=== PATIENT | female | born 1985 | race African-American/Black ===

== ENCOUNTER 2017-08-01 16:33 | Emergency (ER) | payer BC ==
[2017-08-01] MEDS ORDERED: Proparacaine 0.5% Opth 15 ML BOT ONE (16:58)
[2017-08-01] MEDS ORDERED: Fluorescein Opthalmic Strip ONE (16:58)
[2017-08-01 17:10] LABS: #Basophils 0.1 thou/uL (0.0-0.2); #Eosinphils 0.3 thou/uL (0.0-0.7); #Lymphocytes 3.3 thou/uL (1.20-3.40); #Monocytes 0.7 thou/uL (0.11-0.59); #Neutrophils 4.5 thou/uL (1.40-6.50); %Basophils 1.2 % (0.0-1.0); %Eosinophils 3.2 % (0.0-10.0); %Lymphocytes 37.7 % (21.0-51.0); %Monocytes 7.3 % (0.0-10.0); Hematocrit 39.1 % (36.0-47.0); Mean Platelet Volume 7.7 fL (7.4-10.4); Red Blood Cell (RBC) Count 4.22 mill/uL (4.20-5.40); White Blood Cell (WBC) Count 8.9 thou/uL (4.8-10.8)
[2017-08-01] MEDS ORDERED: Ondansetron HCl/PF 4 MG/2 ML Vial ONE (17:22)
[2017-08-01 17:32] LABS: ALT (SGPT) 14 U/L (8-55); AST (SGOT) 18 U/L (5-34); Alkaline Phosphatase 79 U/L (40-150); Anion Gap 13 mmol/L (10-20); BUN (Urea Nitrogen) 10 mg/dL (7.0-18.7); Bilirubin, Total Less than 0.2 mg/dL (0.2-1.2); CK (CPK) 167 U/L (29-168); Calc. Creatinine Clearance 0 mL/min (70-130); Calcium 9.1 mg/dL (7.8-10.44); Carbon Dioxide 21 mmol/L (22-29); Chloride 108 mmol/L (98-107); Estimated GFR-MDRD Greater than 90; Globulin 3.3 g/dL (2.4-3.5); Lipase 32 U/L (8-78); Protein, Total 7.4 g/dL (6.0-8.3)
[2017-08-01 17:36] LABS: Troponin I Less than 0.010 ng/mL (< 0.028)
[2017-08-01] MEDS ORDERED: Ketorolac Tromethamine 30 MG/ML VIAL ONE (18:08)
[2017-08-01] MEDS ORDERED: diphenhydrAMINE HCl 50 MG/ML 1 ML VIAL ONE (18:08)
[2017-08-01] MEDS ORDERED: Metoclopramide HCl 10 MG/2 ML VIAL ONE (18:08)
--- NOTE | 2017-08-01 18:11 | RAD ---
RADIOGRAPH CHEST 1 VIEW: HISTORY: 32-year-old female with acute chest pain. FINDINGS: There are no air space densities, pulmonary edema, pneumothorax, or cardiomegaly. The lateral costo phrenic angles are sharp. IMPRESSION: No acute cardiopulmonary findings. gudelia POS: [facility]
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
== END 2017-08-01 19:20 | disposition home or self-care (01) ==
LOC: ERS 16:33
DX: G43.909 Migraine, unspecified, not intractable, without status migrainosus (principal); R07.89 Other chest pain; F17.210 Nicotine dependence, cigarettes, uncomplicated
CPT/HCPCS: 70450; 71010; 80053; 82550; 82553; 83690; 84484; 85025; 85652; 93005; 96361; 96365; 96375; J1200; J1885; J2270; J2405; J2765

== ENCOUNTER 2018-08-08 12:54 | Outpatient (CLI) | payer BC | END 2018-08-08 12:55 | disposition home or self-care (01) | LOC: BICMAMMO 12:54 | PROVIDERS: ATTEND Nurse Practitioner Family | DX: N63.20 Unspecified lump in the left breast, unspecified quadrant (principal) | CPT/HCPCS: 77066; G0279 ==

== ENCOUNTER 2019-02-03 11:39 | Emergency (ER) | payer BC ==
[2019-02-03] MEDS ORDERED: Ondansetron PF 4 MG/2 ML Vial ONE (12:02)
[2019-02-03] MEDS ORDERED: Morphine 4 MG/ML VIAL ONE ×2 (12:02→12:42)
[2019-02-03 12:11] LABS: #Basophils 0.1 thou/uL (0.0-0.2); #Eosinphils 0.2 thou/uL (0.0-0.7); #Monocytes 0.7 thou/uL (0.11-0.59); #Neutrophils 4.5 thou/uL (1.40-6.50); %Eosinophils 2.2 % (0.0-10.0); %Lymphocytes 35.3 % (21.0-51.0); %Monocytes 8.2 % (0.0-10.0); %Neutrophils 53.3 % (42.0-75.0); Hemoglobin 12.8 g/dL (12.0-16.0); Mean Corpuscular HGB CONC 32.2 g/dL (32.0-36.0); Mean Platelet Volume 7.9 fL (7.4-10.4); Platelet Count 332 thou/uL (130-400); RBC Distribution Width 13.5 % (11.5-14.5); Red Blood Cell (RBC) Count 4.42 mill/uL (4.20-5.40); White Blood Cell (WBC) Count 8.5 thou/uL (4.8-10.8)
[2019-02-03 12:26] LABS: ALT (SGPT) 29 U/L (8-55); AST (SGOT) 22 U/L (5-34); Albumin 4.4 g/dL (3.5-5.0); Alkaline Phosphatase 80 U/L (40-150); Anion Gap 13 mmol/L (10-20); BUN (Urea Nitrogen) 9 mg/dL (7.0-18.7); Bilirubin, Total 0.3 mg/dL (0.2-1.2); Calc. Creatinine Clearance 0 mL/min (70-130); Calcium 9.3 mg/dL (7.8-10.44); Carbon Dioxide 24 mmol/L (22-29); Chloride 105 mmol/L (98-107); Estimated GFR-MDRD Greater than 90; Globulin 2.9 g/dL (2.4-3.5); Glucose 82 mg/dL (70-105); Lipase 19 U/L (8-78); Potassium 3.7 mmol/L (3.5-5.1); Protein, Total 7.3 g/dL (6.0-8.3); Sodium 138 mmol/L (136-145)
--- NOTE | 2019-02-03 13:53 | ULT ---
Exam: Pelvic ultrasound HISTORY: Pelvic pain COMPARISON: None TECHNIQUE: Multiple grayscale and color Doppler images were obtained in a transabdominal and transvag inal pelvic ultrasound. Spectral analysis of the Doppler waveforms of the ovaries were performed. FINDINGS: UTERUS: Status Post Hysterectomy, as reported by patient No free fluid is present. RIGHT OVARY: Surgically removed, as reported by patient. LEFT OVARY:Cyst formation of the left ovary is present. Dominant cyst is approximately 2.7 cm. Th ere is component of complex echotexture of the left ovarian cysts, nonspecific. IMPRESSION: Complex cysts of the left ovary, may be physiologic, although conservative six-week follo w-up pelvic ultrasound is recommended to confirm expected resolution. Surgical absence of uterus and right ovary.
[2019-02-03 13:56] LABS: Bilirubin Small (Negative); Blood, Urine Large (Negative); Clarity CLOUDY (Clear); Glucose, Urine (Dipstick) Negative (Negative); Leukocyte Negative (Negative); Nitrite Negative (Negative); Protein, Urine (Dipstick) Trace mg/dL (Neg-Trace); Specific Gravity, Urine 1.024 (1.002-1.036); Urobilinogen 0.2 mg/dL (0.2-1.0)
[2019-02-03 13:57] LABS: Bacteria/HPF None Seen HPF (None Seen); Hyaline Casts/LPF 4-6 HYALINE CAST LPF (0-3 Hyaline); Pathc Cast-AUWi Flag 0.68 (0-2.49); Pregnancy Test - Urine (BHCG) Negative (Negative); Pregu Control Background? CLEAR/WHITE (CLR/WHITE); Pregu Control Bar Appear? YES (CONTROL BAR); RBC/HPF GREATER THAN 50-TNTC HPF (0-3); Specific Gravity 1.024 (1.002-1.036); WBC/HPF 0-3 HPF (0-3)
[2019-02-03 13:57] LABS: BHCG - Serum Negative (NEGATIVE); Pregs Control Background? CLEAR/WHITE (CLR/WHITE); Pregs Control Bar Appear? YES (CONTROL BAR)
[2019-02-03] MEDS ORDERED: Ketorolac Tromethamine 30 MG/ML VIAL ONE (14:17)
--- NOTE | 2019-02-03 15:06 | CT ---
CT Stone Protocol 02/03/2019 2:08 PM HISTORY: Left-sided abdominal pain. COMPARISON: None. Technique: Multiple contiguous axial images were obtained and a CT of the abdomen and pelvis without IV contrast . Coronal reformats were performed. FINDINGS: This examination is limited for the evaluation of solid organs and vascular structures due to the lac k of intravenous contrast. Lower Chest: Minimal dependent bibasilar atelectasis is present. Abdomen: Liver: There is diminished attenuation of the liver suggesting diffuse fatty infiltration. Gallbladder: Postcholecystectomy changes are noted. Pancreas: within normal limits. Spleen: within normal limits. Adrenals: within normal limits. Kidneys: Multiple nonobstructing bilateral renal calculi are seen. Largest calculus in the inferior p ole right kidney measures approximately 7 mm with largest nonobstructing superior pole left renal calculus measuring approximately 8 mm. There is mild left perinephric stranding as well as left periu reteral inflammatory stranding present. There is pelvic caliectasis on the left without overt hydronephrosis. The left ureter is also asymmetrically slightly dilated compared to the right. The di stal left ureter is difficult to visualize, but there is a calcification seen at the base of the urinary bladder measuring 5 mm which may represent a distal left ureteral calculus. No right ureteral calculus or hydronephrosis is present. Pelvis: Reproductive Organs: Hypodense lesions are seen within the left ovary which may represent left ovaria n cysts. The uterus is not visualized likely related to prior hysterectomy. Bladder: Decompressed but grossly within normal limits. Bowel: Normal in caliber. The appendix is visualized and normal in caliber. Lymph Nodes: No enlarged lymph nodes. Peritoneum: No free fluid, free air, or fluid collection. Vessels: Abdominal aorta is normal in caliber.. Retroperitoneum: within normal limits. Abdominal Wall: within normal limits. Bones: within normal limits. IMPRESSION: 1. Partially obstructing left UVJ calculus measuring 5 mm. Perinephric stranding is seen on the left likely related to the mild obstruction. However, pyelonephritis based on this nonenhanced CT scan exam could not be excluded. 2. Nonobstructing bilateral renal calculi. 3. Fatty infiltration of the liver. 4. Cholecystectomy. 5. No CT evidence of appendicitis. 6. Hypodense left ovarian cystic lesions likely related to ovarian cysts. There is evidence of hyster ectomy.
[2019-02-07 09:18] LABS: Chlamydia by PCR Not Detected (NotDetected); GC by PCR Not Detected (NotDetected)
== END 2019-02-03 16:10 | disposition home or self-care (01) ==
LOC: ERS 11:39
DX: N20.1 Calculus of ureter (principal); F17.210 Nicotine dependence, cigarettes, uncomplicated; Z79.899 Other long term (current) drug therapy
CPT/HCPCS: 74176; 76856; 80053; 81003; 81015; 81025; 83690; 84703; 85025; 87480; 87491; 87510; 87591; 87660; 96374; 96375; 96376; J1885; J2270; J2405

== ENCOUNTER 2019-04-26 06:48 | Emergency (ER) | payer BC | END 2019-04-26 07:13 | disposition left against medical advice (07) | LOC: ERS 06:48 | DX: Z53.21 Procedure and treatment not carried out due to patient leaving prior to being seen by health care provider (principal) ==

== ENCOUNTER 2019-05-29 09:26 | Emergency (ER) | payer BC ==
[2019-05-29] MEDS ORDERED: Ondansetron PF 4 MG/2 ML Vial ONE ×2 (09:50→10:55)
[2019-05-29] MEDS ORDERED: Ketorolac Tromethamine 30 MG/ML VIAL ONE (09:50)
[2019-05-29 10:11] LABS: Pregnancy Test - Urine (BHCG) Negative (Negative); Pregu Control Background? CLEAR/WHITE (CLR/WHITE); Pregu Control Bar Appear? YES (CONTROL BAR); Specific Gravity 1.023 (1.002-1.036)
[2019-05-29 10:13] LABS: Bacteria/HPF None Seen HPF (None Seen); Bilirubin Negative (Negative); Blood, Urine 3+ (Negative); Clarity Turbid (Clear); Glucose, Urine (Dipstick) Normal (Negative); Leukocyte Negative Leu/uL (Negative); Nitrite Negative (Negative); Protein, Urine (Dipstick) 20 mg/dL (Neg-Trace); RBC/HPF Greater than 50 HPF (0-3); Squamous Epithelial 0-3 HPF (0-3); Urobilinogen Normal mg/dL (Less than 2); WBC/HPF None Seen HPF (0-3)
[2019-05-29 10:28] LABS: #Eosinphils 0.1 thou/uL (0.0-0.7); #Lymphocytes 1.4 thou/uL (1.20-3.40); #Monocytes 0.6 thou/uL (0.11-0.59); #Neutrophils 8.5 thou/uL (1.40-6.50); %Basophils 0.4 % (0.0-1.0); %Eosinophils 0.6 % (0.0-10.0); %Lymphocytes 13.3 % (21.0-51.0); %Monocytes 5.7 % (0.0-10.0); %Neutrophils 79.9 % (42.0-75.0); Hemoglobin 12.5 g/dL (12.0-16.0); Mean Corpuscular HGB CONC 32.1 g/dL (32.0-36.0); Mean Corpuscular Hemoglobin 28.9 pg (27.0-31.0); Mean Platelet Volume 8.5 fL (7.4-10.4); Platelet Count 247 thou/uL (130-400); Red Blood Cell (RBC) Count 4.34 mill/uL (4.20-5.40); White Blood Cell (WBC) Count 10.6 thou/uL (4.8-10.8)
[2019-05-29 10:49] LABS: ALT (SGPT) 20 U/L (8-55); AST (SGOT) 19 U/L (5-34); Albumin 4.3 g/dL (3.5-5.0); Alkaline Phosphatase 84 U/L (40-150); Anion Gap 11 mmol/L (10-20); BUN (Urea Nitrogen) 12 mg/dL (7.0-18.7); Bilirubin, Total 0.3 mg/dL (0.2-1.2); Calc. Creatinine Clearance 0 mL/min (70-130); Calcium 9.2 mg/dL (7.8-10.44); Carbon Dioxide 23 mmol/L (22-29); Chloride 106 mmol/L (98-107); Estimated GFR-MDRD 80; Globulin 2.8 g/dL (2.4-3.5); Glucose 107 mg/dL (70-105); Lipase 23 U/L (8-78); Potassium 3.8 mmol/L (3.5-5.1); Protein, Total 7.1 g/dL (6.0-8.3); Sodium 136 mmol/L (136-145)
[2019-05-29] MEDS ORDERED: Morphine 4 MG/ML VIAL ONE (10:55)
--- NOTE | 2019-05-29 11:56 | CT ---
CT ABDOMEN AND PELVIS WITH IV CONTRAST: HISTORY: Acute onset right-sided abdominal pain and vomiting. FINDINGS: Lung bases are unremarkable. The patient is post cholecystectomy and hysterectomy. The liver, splee n, pancreas, and adrenal glands are normal. No free air is seen. There is a small amount of free fl uid in the pelvis. There are calculi in the kidneys on either side. There is a 4 mm calculus in the right distal ureter with hydroureteral nephrosis and perinephric and periureteric inflammatory changes and fluid. There is a 2.7 cm cyst with enhancing granulated margins in the left ovary consistent with popliteal cyst consistent with corpus luteum. A normal-appearing appendix is seen. IMPRESSION: 1. Obstructing 4 mm right distal ureteric calculus. 2. Nonobstructing bilateral renal calculi. 3. 2.7 cm left porpus luteal ovarian cyst and a small amount of free fluid in the pelvis. POS: [facility]
[2019-05-29] MEDS ORDERED: Morphine 2 MG/ML SYRINGE ONE (12:36)
[2019-05-29] MEDS ORDERED: ISOVUE-370 76%-LOCM 1 ML ONE (16:25)
== END 2019-05-29 13:30 | disposition home or self-care (01) ==
LOC: ERS 09:26
DX: N13.2 Hydronephrosis with renal and ureteral calculous obstruction (principal)
CPT/HCPCS: 36415; 74177; 80053; 81003; 81015; 81025; 83690; 85025; 96361; 96374; 96375; 96376; J1885; J2270; J2405; Q9966

== ENCOUNTER 2021-05-11 07:47 | Inpatient (IN) | payer BC ==
[2021-05-11] MEDS ORDERED: Morphine 4 MG/ML VIAL ONE ×2 (08:17→10:43)
[2021-05-11] MEDS ORDERED: Ondansetron PF 4 MG/2 ML Vial ONE (08:17)
[2021-05-11] MEDS ORDERED: Sodium Chloride 0.9% 100 ML ONE (08:48)
[2021-05-11] MEDS ORDERED: Piperacillin/Tazobactam 3.375 GM VIAL ONE (08:48)
[2021-05-11 08:51] LABS: #Basophils 0.1 thou/uL (0.0-0.2); #Eosinphils 0.3 thou/uL (0.0-0.7); #Lymphocytes 2.5 thou/uL (1.20-3.40); #Monocytes 0.6 thou/uL (0.11-0.59); #Neutrophils 4.4 thou/uL (1.40-6.50); %Basophils 1.1 % (0.0-1.0); %Eosinophils 3.5 % (0.0-10.0); %Lymphocytes 31.7 % (21.0-51.0); %Monocytes 7.9 % (0.0-10.0); Hemoglobin 11.5 g/dL (12.0-16.0); Mean Corpuscular HGB CONC 32.8 g/dL (32.0-36.0); Mean Corpuscular Hemoglobin 30.1 pg (27.0-31.0); Mean Corpuscular Volume 91.8 fL (78.0-98.0); Mean Platelet Volume 7.1 fL (7.4-10.4); Platelet Count 430 thou/uL (130-400); RBC Distribution Width 13.2 % (11.5-14.5); Red Blood Cell (RBC) Count 3.84 mill/uL (4.20-5.40); White Blood Cell (WBC) Count 7.9 thou/uL (4.8-10.8)
[2021-05-11] MEDS ORDERED: Iopamidol-370 76% 500 ML 1 ML ONE (08:54)
[2021-05-11] MEDS ORDERED: Vancomycin HCl 1.75 GM in Sodium Chloride 0.9% 500 ML IVPB SCH (09:00)
[2021-05-11 09:08] LABS: ALT (SGPT) 15 U/L (8-55); AST (SGOT) 16 U/L (5-34); Albumin 3.9 g/dL (3.5-5.0); Alkaline Phosphatase 73 U/L (40-110); Anion Gap 10 mmol/L (10-20); BUN (Urea Nitrogen) 8 mg/dL (7.0-18.7); Bilirubin, Total 0.3 mg/dL (0.2-1.2); Calc. Creatinine Clearance 0 mL/min (70-130); Carbon Dioxide 23 mmol/L (22-29); Chloride 107 mmol/L (98-107); Globulin 2.8 g/dL (2.4-3.5); Glucose 94 mg/dL (70-105); Lipase 26 U/L (8-78); Protein, Total 6.7 g/dL (6.0-8.3); Sodium 136 mmol/L (136-145)
[2021-05-11 10:21] LABS: Bilirubin Negative (Negative); Blood, Urine Negative (Negative); Clarity Clear (Clear); Glucose, Urine (Dipstick) Normal (Negative); Ketone, Urine Negative (Negative); Leukocyte Negative Leu/uL (Negative); Nitrite Negative (Negative); Protein, Urine (Dipstick) Negative (Neg-Trace); Specific Gravity, Urine 1.011 (1.002-1.036); Urobilinogen Normal mg/dL (Less than 2); pH, Urine 6.5 (5.0-9.0)
[2021-05-11] MEDS ORDERED: HYDROcodone/Acetaminophen 5/325 mg Tablet PO PRN (12:02)
[2021-05-11] MEDS ORDERED: Acetaminophen 325 MG TAB PO PRN (12:02)
[2021-05-11] MEDS ORDERED: Ondansetron ODT 4 MG TAB PO PRN ×2 (12:02)
[2021-05-11] MEDS ORDERED: Ondansetron PF 4 MG/2 ML Vial IVP PRN ×2 (12:02)
[2021-05-11] MEDS ORDERED: Famotidine/PF 20 mg/2ml Vial ONE (12:47)
[2021-05-11] MEDS ORDERED: diphenhydrAMINE 50 MG/ML VIAL ONE (12:47)
[2021-05-11] MEDS: Morphine 2 MG/ML VIAL SLOW IVP PRN ×2 (14:26→23:23)
[2021-05-11 15:05] VITALS: BMI 30.7
[2021-05-11] MEDS: Cefepime 1 GM in Sodium Chloride 0.9% 100 ML IVPB SCH (15:40)
[2021-05-11] MEDS ORDERED: Piperacillin/Tazobactam 3.375 GM in Sodium Chloride 0.9% 100 ML IVPB SCH (17:00)
[2021-05-11] MEDS: HYDROcodone/Acetaminophen 5/325 mg Tablet PO PRN ×2 (17:27→20:45)
[2021-05-11] MEDS: Famotidine 20 MG TAB PO SCH (20:34)
[2021-05-11] MEDS: VANCOMYCIN 1.25 GM/250 ML BAG 1.25 GM in Premix Bag 1 BAG IVPB SCH (20:34)
[2021-05-11] MEDS: Famotidine/PF 20 mg/2ml Vial SLOW IVP SCH (20:35)
[2021-05-12] MEDS: Cefepime 1 GM in Sodium Chloride 0.9% 100 ML IVPB SCH ×2 (02:18→15:23)
[2021-05-12] MEDS: VANCOMYCIN 1.25 GM/250 ML BAG 1.25 GM in Premix Bag 1 BAG IVPB SCH ×3 (04:06→20:14)
[2021-05-12 06:17] LABS: #Basophils 0.1 thou/uL (0.0-0.2); #Eosinphils 0.2 thou/uL (0.0-0.7); #Lymphocytes 1.8 thou/uL (1.20-3.40); #Monocytes 0.5 thou/uL (0.11-0.59); #Neutrophils 3.2 thou/uL (1.40-6.50); %Basophils 0.9 % (0.0-1.0); %Eosinophils 3.7 % (0.0-10.0); %Lymphocytes 31.1 % (21.0-51.0); %Monocytes 9.2 % (0.0-10.0); %Neutrophils 55.1 % (42.0-75.0); Hemoglobin 10.1 g/dL (12.0-16.0); Mean Corpuscular HGB CONC 31.8 g/dL (32.0-36.0); Mean Corpuscular Hemoglobin 29.9 pg (27.0-31.0); Mean Corpuscular Volume 94.1 fL (78.0-98.0); Platelet Count 369 thou/uL (130-400); RBC Distribution Width 13.5 % (11.5-14.5); Red Blood Cell (RBC) Count 3.38 mill/uL (4.20-5.40); White Blood Cell (WBC) Count 5.9 thou/uL (4.8-10.8)
[2021-05-12 06:38] LABS: Anion Gap 9 mmol/L (10-20); BUN (Urea Nitrogen) 10 mg/dL (7.0-18.7); Calc. Creatinine Clearance 140 mL/min (70-130); Calcium 8.4 mg/dL (7.8-10.44); Carbon Dioxide 26 mmol/L (22-29); Chloride 108 mmol/L (98-107); Glucose 88 mg/dL (70-105); Potassium 4.1 mmol/L (3.5-5.1); Sodium 139 mmol/L (136-145)
[2021-05-12] MEDS: Famotidine/PF 20 mg/2ml Vial SLOW IVP SCH (08:53)
[2021-05-12] MEDS: Famotidine 20 MG TAB PO SCH ×2 (08:56→20:15)
[2021-05-12] MEDS: HYDROcodone/Acetaminophen 5/325 mg Tablet PO PRN ×2 (08:58→15:23)
[2021-05-12 11:36] LABS: Vancomycin, Trough 17.6 ug/mL
[2021-05-12] MEDS ORDERED: Polyethylene Glycol 3350 17 GM Packet PO PRN (15:35)
[2021-05-12] MEDS ORDERED: ALPRAZolam 1 MG TAB PO PRN (15:45)
[2021-05-12] MEDS: Morphine 2 MG/ML VIAL SLOW IVP PRN ×2 (16:23→20:17)
[2021-05-12 18:37] LABS: Lactic Acid 1.8 mmol/L (0.5-2.2)
[2021-05-13] MEDS: Cefepime 1 GM in Sodium Chloride 0.9% 100 ML IVPB SCH ×2 (01:32→16:29)
[2021-05-13] MEDS: HYDROcodone/Acetaminophen 7.5/325 mg Tablet PO PRN ×5 (01:39→23:52)
[2021-05-13] MEDS: Morphine 2 MG/ML VIAL SLOW IVP PRN ×5 (03:19→20:48)
[2021-05-13] MEDS: VANCOMYCIN 1.25 GM/250 ML BAG 1.25 GM in Premix Bag 1 BAG IVPB SCH ×3 (05:11→20:52)
[2021-05-13 05:36] LABS: #Eosinphils 0.2 thou/uL (0.0-0.7); #Monocytes 0.5 thou/uL (0.11-0.59); %Basophils 0.4 % (0.0-1.0); %Eosinophils 3.8 % (0.0-10.0); %Lymphocytes 34.7 % (21.0-51.0); %Monocytes 9.4 % (0.0-10.0); %Neutrophils 51.6 % (42.0-75.0); Hemoglobin 9.6 g/dL (12.0-16.0); Mean Corpuscular HGB CONC 29.4 g/dL (32.0-36.0); Mean Corpuscular Hemoglobin 27.2 pg (27.0-31.0); Mean Corpuscular Volume 92.7 fL (78.0-98.0); Mean Platelet Volume 7.4 fL (7.4-10.4); Platelet Count 394 thou/uL (130-400); RBC Distribution Width 13.4 % (11.5-14.5); Red Blood Cell (RBC) Count 3.51 mill/uL (4.20-5.40); White Blood Cell (WBC) Count 5.8 thou/uL (4.8-10.8)
[2021-05-13 05:54] LABS: Lactic Acid 1.1 mmol/L (0.5-2.2)
[2021-05-13 06:01] LABS: ALT (SGPT) 70 U/L (8-55); AST (SGOT) 41 U/L (5-34); Albumin 3.6 g/dL (3.5-5.0); Alkaline Phosphatase 79 U/L (40-110); Anion Gap 9 mmol/L (10-20); BUN (Urea Nitrogen) 9 mg/dL (7.0-18.7); Bilirubin, Total 0.2 mg/dL (0.2-1.2); Calc. Creatinine Clearance 153 mL/min (70-130); Calcium 8.7 mg/dL (7.8-10.44); Carbon Dioxide 25 mmol/L (22-29); Chloride 110 mmol/L (98-107); Globulin 2.3 g/dL (2.4-3.5); Glucose 101 mg/dL (70-105); Potassium 4.1 mmol/L (3.5-5.1); Protein, Total 5.9 g/dL (6.0-8.3); Sodium 140 mmol/L (136-145)
[2021-05-13] MEDS ORDERED: Morphine 2 MG/ML VIAL SLOW IVP SCH (06:30)
[2021-05-13] MEDS: Polyethylene Glycol 3350 17 GM Packet PO SCH (08:19)
[2021-05-13] MEDS: FLUoxetine HCl 20 MG CAP PO SCH (08:20)
[2021-05-13] MEDS: Famotidine 20 MG TAB PO SCH ×2 (08:20→20:49)
[2021-05-13] MEDS ORDERED: Piperacillin/Tazobactam 3.375 GM in Sodium Chloride 0.9% 100 ML IVPB SCH ×2 (16:45→18:00)
[2021-05-13] MEDS: diphenhydrAMINE 25 MG CAP PO PRN (18:37)
[2021-05-13] MEDS: Piperacillin/Tazobactam 3.375 GM in Sodium Chloride 0.9% 100 ML IVPB SCH (23:40)
[2021-05-14] MEDS: Morphine 2 MG/ML VIAL SLOW IVP PRN ×2 (04:07→16:35)
[2021-05-14] MEDS: VANCOMYCIN 1.25 GM/250 ML BAG 1.25 GM in Premix Bag 1 BAG IVPB SCH ×2 (04:07→12:38)
[2021-05-14] MEDS: diphenhydrAMINE 25 MG CAP PO PRN (04:32)
[2021-05-14 05:54] LABS: #Basophils 0.1 thou/uL (0.0-0.2); #Eosinphils 0.2 thou/uL (0.0-0.7); #Lymphocytes 2.1 thou/uL (1.20-3.40); #Monocytes 0.5 thou/uL (0.11-0.59); #Neutrophils 3.7 thou/uL (1.40-6.50); %Basophils 0.9 % (0.0-1.0); %Eosinophils 2.9 % (0.0-10.0); %Lymphocytes 31.6 % (21.0-51.0); %Monocytes 8.2 % (0.0-10.0); %Neutrophils 56.4 % (42.0-75.0); Hemoglobin 9.9 g/dL (12.0-16.0); Mean Corpuscular HGB CONC 32.4 g/dL (32.0-36.0); Mean Corpuscular Hemoglobin 30.4 pg (27.0-31.0); Mean Corpuscular Volume 93.9 fL (78.0-98.0); Mean Platelet Volume 7.1 fL (7.4-10.4); Platelet Count 342 thou/uL (130-400); RBC Distribution Width 13.6 % (11.5-14.5); Red Blood Cell (RBC) Count 3.25 mill/uL (4.20-5.40); White Blood Cell (WBC) Count 6.5 thou/uL (4.8-10.8)
[2021-05-14] MEDS: HYDROcodone/Acetaminophen 7.5/325 mg Tablet PO PRN ×3 (06:18→12:40)
[2021-05-14] MEDS: Piperacillin/Tazobactam 3.375 GM in Sodium Chloride 0.9% 100 ML IVPB SCH ×2 (06:19→12:38)
[2021-05-14] MEDS: FLUoxetine HCl 20 MG CAP PO SCH (09:22)
[2021-05-14] MEDS: Famotidine 20 MG TAB PO SCH (09:23)
[2021-05-14] MEDS: Polyethylene Glycol 3350 17 GM Packet PO SCH (09:24)
[2021-05-14 15:34] VITALS: BP 123/85; TEMP 97.7
== END 2021-05-14 18:04 | disposition home or self-care (01) | DRG 603 ==
LOC: ERS 07:47 → SURG A 11:20 → OBSVTOIN 05-12 15:33
PROVIDERS: ADMIT Internal Medicine; ATTEND Family Medicine
DX: L03.311 Cellulitis of abdominal wall (principal); N20.0 Calculus of kidney; Z88.0 Allergy status to penicillin; Z90.49 Acquired absence of other specified parts of digestive tract; Z90.710 Acquired absence of both cervix and uterus
CPT/HCPCS: 36415; 74177; 80048; 80053; 80202; 81003; 83605; 83690; 85025; 87040; 87086; 96366; 96367; 96376; G0378; J0692; J1200; J2270; J2405; J2543; J3370; J3490; J7030; Q0163; Q9967; S0028

== ENCOUNTER 2021-06-01 11:52 | Inpatient (IN) | payer BC ==
[~2021-06-01 11:52] MED LIST: Iopamidol-370 76% 500 ML 1 ML ONE
[2021-06-01] MEDS ORDERED: Sodium Chloride 0.9% 100 ML ONE (12:33)
[2021-06-01] MEDS ORDERED: Vancomycin 1 GM/200 ML BAG ONE (12:33)
[2021-06-01] MEDS ORDERED: Ketorolac Tromethamine 30 MG/ML VIAL ONE (12:33)
[2021-06-01] MEDS ORDERED: Morphine 4 MG/ML VIAL ONE (12:33)
[2021-06-01] MEDS ORDERED: Cefepime 2 GM VIAL ONE (12:33)
[2021-06-01 12:46] LABS: #Basophils 0.1 thou/uL (0.0-0.2); #Eosinphils 0.3 thou/uL (0.0-0.7); #Lymphocytes 2.8 thou/uL (1.20-3.40); #Monocytes 0.5 thou/uL (0.11-0.59); #Neutrophils 3.8 thou/uL (1.40-6.50); %Basophils 1.3 % (0.0-1.0); %Eosinophils 3.6 % (0.0-10.0); %Lymphocytes 37.3 % (21.0-51.0); %Monocytes 6.7 % (0.0-10.0); Hemoglobin 11.8 g/dL (12.0-16.0); Mean Corpuscular HGB CONC 33.6 g/dL (32.0-36.0); Mean Corpuscular Hemoglobin 30.7 pg (27.0-31.0); Mean Corpuscular Volume 91.6 fL (78.0-98.0); Mean Platelet Volume 7.6 fL (7.4-10.4); Platelet Count 314 thou/uL (130-400); Red Blood Cell (RBC) Count 3.85 mill/uL (4.20-5.40); White Blood Cell (WBC) Count 7.5 thou/uL (4.8-10.8)
[2021-06-01 12:56] LABS: ALT (SGPT) 22 U/L (8-55); AST (SGOT) 21 U/L (5-34); Alkaline Phosphatase 72 U/L (40-110); Anion Gap 14 mmol/L (10-20); BUN (Urea Nitrogen) 9 mg/dL (7.0-18.7); Bilirubin, Total 0.2 mg/dL (0.2-1.2); Calc. Creatinine Clearance 0 mL/min (70-130); Calcium 9.2 mg/dL (7.8-10.44); Carbon Dioxide 18 mmol/L (22-29); Chloride 111 mmol/L (98-107); Globulin 2.9 g/dL (2.4-3.5); Glucose 89 mg/dL (70-105); Potassium 3.9 mmol/L (3.5-5.1); Protein, Total 6.9 g/dL (6.0-8.3); Sodium 139 mmol/L (136-145)
[2021-06-01] MEDS ORDERED: Acetaminophen 325 MG TAB PO PRN (15:52)
[2021-06-01 16:38] VITALS: BMI 29.9
[2021-06-01] MEDS: Morphine 4 MG/ML VIAL SLOW IVP PRN ×2 (16:45→21:05)
[2021-06-01] MEDS: Clindamycin/D5W 600 MG in Premix Bag 1 BAG IVPB SCH (18:22)
[2021-06-01] MEDS: HYDROcodone/Acetaminophen 10/325 mg Tablet PO PRN (18:22)
[2021-06-01 21:00] LABS: SARS-CoV-2 PCR by NAA Not Detected (NotDetected)
[2021-06-01] MEDS: Famotidine 20 MG TAB PO SCH (21:03)
[2021-06-01] MEDS: diphenhydrAMINE 25 MG CAP PO PRN (21:03)
[2021-06-01] MEDS: ZOLPIDEM TARTRATE 12.5 MG PO PRN (21:03)
[2021-06-02] MEDS: Clindamycin/D5W 600 MG in Premix Bag 1 BAG IVPB SCH ×3 (00:02→13:38)
[2021-06-02] MEDS: HYDROcodone/Acetaminophen 10/325 mg Tablet PO PRN ×4 (00:04→22:06)
[2021-06-02] MEDS: diphenhydrAMINE 25 MG CAP PO PRN ×3 (04:13→22:05)
[2021-06-02 05:33] LABS: #Eosinphils 0.2 thou/uL (0.0-0.7); #Lymphocytes 2.6 thou/uL (1.20-3.40); #Monocytes 0.5 thou/uL (0.11-0.59); #Neutrophils 2.4 thou/uL (1.40-6.50); %Basophils 0.5 % (0.0-1.0); %Eosinophils 4.1 % (0.0-10.0); %Lymphocytes 44.8 % (21.0-51.0); %Neutrophils 42.6 % (42.0-75.0); Hemoglobin 10.5 g/dL (12.0-16.0); Mean Corpuscular HGB CONC 32.7 g/dL (32.0-36.0); Mean Corpuscular Hemoglobin 30.1 pg (27.0-31.0); Mean Platelet Volume 7.7 fL (7.4-10.4); Platelet Count 307 thou/uL (130-400); Red Blood Cell (RBC) Count 3.49 mill/uL (4.20-5.40); White Blood Cell (WBC) Count 5.7 thou/uL (4.8-10.8)
[2021-06-02 05:55] LABS: Anion Gap 9 mmol/L (10-20); BUN (Urea Nitrogen) 9 mg/dL (7.0-18.7); Calc. Creatinine Clearance 140 mL/min (70-130); Calcium 8.6 mg/dL (7.8-10.44); Carbon Dioxide 25 mmol/L (22-29); Chloride 107 mmol/L (98-107); Glucose 111 mg/dL (70-105); Potassium 3.4 mmol/L (3.5-5.1); Sodium 138 mmol/L (136-145)
[2021-06-02] MEDS: Morphine 4 MG/ML VIAL SLOW IVP PRN ×3 (06:05→18:41)
[2021-06-02] MEDS ORDERED: Potassium Chloride 20 MEQ TAB PO SCH (07:30)
[2021-06-02] MEDS: Enoxaparin Sodium 40 MG/0.4 ML SYRINGE SC SCH (09:41)
[2021-06-02] MEDS: Saccharomyces boulardii 250 MG CAP PO SCH (09:42)
[2021-06-02] MEDS: Famotidine 20 MG TAB PO SCH ×2 (09:42→22:05)
[2021-06-02] MEDS: Ibuprofen 600 MG TAB PO SCH ×2 (11:35→16:31)
[2021-06-02] MEDS: Vancomycin HCl 1.25 GM in Sodium Chloride 0.9% 250 ML 250 ML IVPB SCH (19:27)
[2021-06-02] MEDS ORDERED: MEROPENEM 1 GM/50 ML 1 GM in Premix Bag 1 BAG IVPB SCH (22:00)
[2021-06-02] MEDS: ALPRAZolam 1 MG TAB PO SCH (22:05)
[2021-06-02] MEDS: Miconazole 2% Vaginal Cream 45 GM TUBE VAG SCH (22:05)
[2021-06-02] MEDS: ZOLPIDEM TARTRATE 12.5 MG PO PRN (22:05)
[2021-06-03] MEDS: Morphine 4 MG/ML VIAL SLOW IVP PRN ×3 (00:36→16:09)
[2021-06-03 05:38] LABS: #Basophils 0.1 thou/uL (0.0-0.2); #Eosinphils 0.2 thou/uL (0.0-0.7); #Lymphocytes 2.5 thou/uL (1.20-3.40); #Monocytes 0.4 thou/uL (0.11-0.59); #Neutrophils 2.1 thou/uL (1.40-6.50); %Eosinophils 3.9 % (0.0-10.0); %Lymphocytes 48.8 % (21.0-51.0); %Monocytes 6.8 % (0.0-10.0); %Neutrophils 39.5 % (42.0-75.0); Hemoglobin 10.4 g/dL (12.0-16.0); Mean Corpuscular HGB CONC 33.3 g/dL (32.0-36.0); Mean Corpuscular Hemoglobin 30.6 pg (27.0-31.0); Mean Corpuscular Volume 91.9 fL (78.0-98.0); Mean Platelet Volume 7.8 fL (7.4-10.4); Platelet Count 299 thou/uL (130-400); Red Blood Cell (RBC) Count 3.42 mill/uL (4.20-5.40); White Blood Cell (WBC) Count 5.2 thou/uL (4.8-10.8)
[2021-06-03 05:46] LABS: Anion Gap 7 mmol/L (10-20); BUN (Urea Nitrogen) 12 mg/dL (7.0-18.7); Calc. Creatinine Clearance 138 mL/min (70-130); Calcium 8.6 mg/dL (7.8-10.44); Carbon Dioxide 25 mmol/L (22-29); Chloride 110 mmol/L (98-107); Glucose 108 mg/dL (70-105); Potassium 3.8 mmol/L (3.5-5.1); Sodium 138 mmol/L (136-145)
[2021-06-03] MEDS: MEROPENEM 1 GM/50 ML 1 GM in Premix Bag 1 BAG IVPB SCH ×3 (06:08→22:30)
[2021-06-03] MEDS: HYDROcodone/Acetaminophen 10/325 mg Tablet PO PRN ×2 (06:08→20:57)
[2021-06-03] MEDS: diphenhydrAMINE 25 MG CAP PO PRN ×2 (06:08→12:02)
[2021-06-03] MEDS ORDERED: Loperamide HCl 2 MG CAP PO PRN (07:10)
[2021-06-03] MEDS ORDERED: Cepastat Lozenges 1 LOZ PO PRN (07:10)
[2021-06-03] MEDS ORDERED: Benzonatate 100 MG CAP PO PRN (07:10)
[2021-06-03] MEDS ORDERED: Ondansetron PF 4 MG/2 ML Vial IVP PRN (07:10)
[2021-06-03] MEDS ORDERED: Hydrocerin (Eucerin) Cream 120 gm Jar TOP PRN (07:10)
[2021-06-03] MEDS ORDERED: hydrALAZINE 20 MG/ML VIAL SLOW IVP PRN (07:10)
[2021-06-03] MEDS ORDERED: Bisacodyl 5 MG TAB PO PRN (07:10)
[2021-06-03] MEDS ORDERED: Zolpidem Tartrate 5 MG TAB PO PRN (07:10)
[2021-06-03] MEDS ORDERED: Calcium Carbonate 500 MG ChewTAB PO PRN (07:10)
[2021-06-03] MEDS ORDERED: GUAIFENESIN SF SOLN 200 MG/10 ML UDCUP PO PRN (07:10)
[2021-06-03] MEDS ORDERED: HYDROcodone/Acetaminophen 5/325 mg Tablet PO PRN (07:10)
[2021-06-03] MEDS ORDERED: Sodium Chloride 0.65% Nasal 44 ML BOT EA NARE PRN (07:10)
[2021-06-03] MEDS ORDERED: Senokot S 8.6-50 MG TAB PO PRN (07:10)
[2021-06-03] MEDS ORDERED: Ondansetron ODT 4 MG TAB PO PRN (07:10)
[2021-06-03] MEDS: Ibuprofen 600 MG TAB PO SCH ×3 (09:10→17:06)
[2021-06-03] MEDS: FLUoxetine HCl 20 MG CAP PO SCH (09:11)
[2021-06-03] MEDS: ALPRAZolam 1 MG TAB PO SCH ×2 (09:11→20:58)
[2021-06-03] MEDS: Enoxaparin Sodium 40 MG/0.4 ML SYRINGE SC SCH (09:11)
[2021-06-03] MEDS: Famotidine 20 MG TAB PO SCH ×2 (09:11→20:58)
[2021-06-03] MEDS: Saccharomyces boulardii 250 MG CAP PO SCH (09:12)
[2021-06-03] MEDS: Vancomycin HCl 1.25 GM in Sodium Chloride 0.9% 250 ML 250 ML IVPB SCH ×2 (10:10→20:58)
[2021-06-03] MEDS: Miconazole 2% Vaginal Cream 45 GM TUBE VAG SCH (21:04)
[2021-06-04] MEDS: HYDROcodone/Acetaminophen 10/325 mg Tablet PO PRN ×3 (04:08→12:44)
[2021-06-04] MEDS: MEROPENEM 1 GM/50 ML 1 GM in Premix Bag 1 BAG IVPB SCH ×3 (05:08→23:37)
[2021-06-04 05:38] LABS: #Basophils 0.1 thou/uL (0.0-0.2); #Eosinphils 0.3 thou/uL (0.0-0.7); #Lymphocytes 2.4 thou/uL (1.20-3.40); #Monocytes 0.5 thou/uL (0.11-0.59); #Neutrophils 3.1 thou/uL (1.40-6.50); %Lymphocytes 38.5 % (21.0-51.0); %Monocytes 7.3 % (0.0-10.0); %Neutrophils 49.3 % (42.0-75.0); Hemoglobin 10.5 g/dL (12.0-16.0); Mean Corpuscular HGB CONC 33.3 g/dL (32.0-36.0); Mean Corpuscular Hemoglobin 30.4 pg (27.0-31.0); Mean Corpuscular Volume 91.4 fL (78.0-98.0); Mean Platelet Volume 8.3 fL (7.4-10.4); Platelet Count 303 thou/uL (130-400); RBC Distribution Width 13.1 % (11.5-14.5); Red Blood Cell (RBC) Count 3.47 mill/uL (4.20-5.40); White Blood Cell (WBC) Count 6.3 thou/uL (4.8-10.8)
[2021-06-04 06:54] LABS: Anion Gap 9 mmol/L (10-20); BUN (Urea Nitrogen) 12 mg/dL (7.0-18.7); CRP (Inflammatory) 0.67 mg/dL (= or < 0.5); Calc. Creatinine Clearance 154 mL/min (70-130); Calcium 8.7 mg/dL (7.8-10.44); Carbon Dioxide 25 mmol/L (22-29); Chloride 110 mmol/L (98-107); Glucose 108 mg/dL (70-105); Potassium 4.1 mmol/L (3.5-5.1); Sodium 140 mmol/L (136-145)
[2021-06-04] MEDS: Morphine 4 MG/ML VIAL SLOW IVP PRN ×3 (07:20→21:24)
[2021-06-04] MEDS: Vancomycin HCl 1.25 GM in Sodium Chloride 0.9% 250 ML 250 ML IVPB SCH ×2 (09:02→21:30)
[2021-06-04] MEDS: Ferrous Sulfate 325 MG TAB PO SCH (09:03)
[2021-06-04] MEDS: Ibuprofen 600 MG TAB PO SCH ×3 (09:03→17:58)
[2021-06-04] MEDS: Saccharomyces boulardii 250 MG CAP PO SCH (09:03)
[2021-06-04] MEDS: ALPRAZolam 1 MG TAB PO SCH ×2 (09:03→21:24)
[2021-06-04] MEDS: Famotidine 20 MG TAB PO SCH ×2 (09:03→21:24)
[2021-06-04] MEDS: FLUoxetine HCl 20 MG CAP PO SCH (09:03)
[2021-06-04] MEDS: Enoxaparin Sodium 40 MG/0.4 ML SYRINGE SC SCH (09:04)
[2021-06-04] MEDS ORDERED: Polyethylene Glycol 3350 17 GM Packet PO PRN (14:38)
[2021-06-04] MEDS ORDERED: Saccharomyces boulardii 250 MG CAP PO SCH (21:00)
[2021-06-04] MEDS: Miconazole 2% Vaginal Cream 45 GM TUBE VAG SCH (21:26)
[2021-06-04] MEDS: Senokot S 8.6-50 MG TAB PO SCH (21:37)
[2021-06-05] MEDS: HYDROcodone/Acetaminophen 10/325 mg Tablet PO PRN ×3 (03:03→13:41)
[2021-06-05] MEDS: MEROPENEM 1 GM/50 ML 1 GM in Premix Bag 1 BAG IVPB SCH ×2 (05:25→13:41)
[2021-06-05] MEDS: Ibuprofen 600 MG TAB PO SCH ×2 (08:54→13:39)
[2021-06-05] MEDS: Ferrous Sulfate 325 MG TAB PO SCH (08:54)
[2021-06-05] MEDS: Enoxaparin Sodium 40 MG/0.4 ML SYRINGE SC SCH (08:55)
[2021-06-05] MEDS: FLUoxetine HCl 20 MG CAP PO SCH (08:55)
[2021-06-05] MEDS: ALPRAZolam 1 MG TAB PO SCH (08:55)
[2021-06-05] MEDS: Famotidine 20 MG TAB PO SCH (08:55)
[2021-06-05] MEDS: Senokot S 8.6-50 MG TAB PO SCH (08:55)
[2021-06-05] MEDS: Vancomycin HCl 1.25 GM in Sodium Chloride 0.9% 250 ML 250 ML IVPB SCH (08:56)
[2021-06-05] MEDS ORDERED: Ketorolac Tromethamine 30 MG/ML VIAL ONE (10:59)
[2021-06-05 16:00] VITALS: BP 122/85; TEMP 97.7
[2021-06-05] MEDS ORDERED: Senokot S 8.6-50 MG TAB PO SCH (21:00)
== END 2021-06-05 18:30 | disposition home or self-care (01) | DRG 863 ==
LOC: ERS 11:52 → SURG A 15:52
PROVIDERS: ADMIT Internal Medicine; ATTEND Internal Medicine
DX: T81.49XA Infection following a procedure, other surgical site, initial encounter (principal); L03.311 Cellulitis of abdominal wall; F33.9 Major depressive disorder, recurrent, unspecified; Z20.822 Contact with and (suspected) exposure to COVID-19; E66.9 Obesity, unspecified; E87.6 Hypokalemia; N20.0 Calculus of kidney; K76.0 Fatty (change of) liver, not elsewhere classified; D53.9 Nutritional anemia, unspecified; Y83.8 Other surgical procedures as the cause of abnormal reaction of the patient, or of later complication, without mention of misadventure at the time of the procedure; F41.9 Anxiety disorder, unspecified; R03.0 Elevated blood-pressure reading, without diagnosis of hypertension; Z68.30 Body mass index [BMI] 30.0-30.9, adult; Z88.0 Allergy status to penicillin; Z90.49 Acquired absence of other specified parts of digestive tract; Z90.710 Acquired absence of both cervix and uterus; Z82.49 Family history of ischemic heart disease and other diseases of the circulatory system; Z79.899 Other long term (current) drug therapy
CPT/HCPCS: 36415; 74177; 80048; 80053; 83605; 85025; 86140; 87040; 87070; 87205; 96365; 96367; 96375; J0692; J0744; J1650; J1885; J2185; J2270; J3370; J3490; J7050; Q0163; Q9967; U0003; U0005

== ENCOUNTER 2022-04-21 19:56 | Emergency (ER) | payer BC ==
[2022-04-21 20:22] LABS: #Basophils 0.1 thou/uL (0.0-0.2); #Eosinphils 0.2 thou/uL (0.0-0.7); #Lymphocytes 3.6 thou/uL (1.20-3.40); #Monocytes 0.6 thou/uL (0.11-0.59); #Neutrophils 4.5 thou/uL (1.40-6.50); %Eosinophils 2.7 % (0.0-10.0); %Lymphocytes 39.4 % (21.0-51.0); %Monocytes 6.8 % (0.0-10.0); %Neutrophils 50.1 % (42.0-75.0); Hemoglobin 12.9 g/dL (12.0-16.0); Mean Corpuscular HGB CONC 32.7 g/dL (32.0-36.0); Mean Corpuscular Hemoglobin 30.7 pg (27.0-31.0); Mean Corpuscular Volume 93.8 fL (78.0-98.0); Mean Platelet Volume 7.7 fL (7.4-10.4); Platelet Count 284 thou/uL (130-400); RBC Distribution Width 13.2 % (11.5-14.5); Red Blood Cell (RBC) Count 4.21 mill/uL (4.20-5.40)
[2022-04-21 20:23] LABS: Bilirubin Negative (Negative); Blood, Urine Negative (Negative); Clarity Clear (Clear); Glucose, Urine (Dipstick) Normal (Negative); Ketone, Urine Negative (Negative); Leukocyte Negative Leu/uL (Negative); Nitrite Negative (Negative); Protein, Urine (Dipstick) Negative (Neg-Trace); Specific Gravity, Urine 1.024 (1.002-1.036); Urobilinogen Normal mg/dL (Less than 2)
[2022-04-21 20:25] LABS: Pregnancy Test - Urine (BHCG) Negative (Negative); Pregu Control Background? CLEAR/WHITE (CLR/WHITE); Pregu Control Bar Appear? YES (CONTROL BAR); Specific Gravity 1.024 (1.002-1.036)
[2022-04-21 20:47] LABS: ALT (SGPT) 17 U/L (8-55); AST (SGOT) 13 U/L (5-34); Alkaline Phosphatase 78 U/L (40-110); Anion Gap 12 mmol/L (10-20); BUN (Urea Nitrogen) 10 mg/dL (7.0-18.7); Bilirubin, Total 0.2 mg/dL (0.2-1.2); Calc. Creatinine Clearance 0 mL/min (70-130); Calcium 9.3 mg/dL (7.8-10.44); Carbon Dioxide 23 mmol/L (22-29); Chloride 108 mmol/L (98-107); Estimated GFR 107; Globulin 2.7 g/dL (2.4-3.5); Glucose 127 mg/dL (70-105); Potassium 3.6 mmol/L (3.5-5.1); Protein, Total 6.7 g/dL (6.0-8.3); Sodium 139 mmol/L (136-145)
== END 2022-04-21 22:00 | disposition left against medical advice (07) ==
LOC: ERS 19:56
DX: Z53.21 Procedure and treatment not carried out due to patient leaving prior to being seen by health care provider (principal)
CPT/HCPCS: 36415; 80053; 81003; 81025; 85025